=== PATIENT | female | born 1995 | race American Indian/Alaskan Native ===

== ENCOUNTER 2020-04-15 23:39 | Emergency (ER) | payer OTHER ==
[2020-04-16 00:38] VITALS: BP 106/75
--- NOTE | 2020-04-16 01:32 | XRay Report ---
LUMBAR SPINE HISTORY: Lower back pain COMPARISON: None. TECHNIQUE: 2 view(s) of the lumbar spine obtained. FINDINGS: Vertebrae: Normal alignment. No displaced fracture or significant abnormality. Disc Spaces:No significant abnormality. Facet Joints:No significant abnormality. Additional findings: None. IMPRESSION: 1. No significant abnormality of the lumbar spine. Signer Name: Latrice Ochoa MD Signed: 04/16/2020 1:27 AM Workstation Name: [id number]
[2020-04-16] MEDS ORDERED: KETOROLAC 30 MG/1 ML INJ IM ONE (01:43)
[2020-04-16] MEDS ORDERED: CYCLOBENZAPRINE 10 MG TAB PO ONE (01:44)
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
== END 2020-04-16 02:18 | disposition home or self-care (01) ==
LOC: ED 23:39
DX: S39.012A Strain of muscle, fascia and tendon of lower back, initial encounter (principal); Z79.899 Other long term (current) drug therapy; V49.59XA Passenger injured in collision with other motor vehicles in traffic accident, initial encounter; Y93.89 Activity, other specified; Y92.410 Unspecified street and highway as the place of occurrence of the external cause; Y99.8 Other external cause status
CPT/HCPCS: 72100; 96372; 99283; J1885

== ENCOUNTER 2020-04-21 11:39 | Emergency (ER) | payer OTHER ==
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
[2020-04-21 16:03] VITALS: BP 102/57
== END 2020-04-21 16:03 | disposition home or self-care (01) ==
LOC: ED 11:39
DX: R47.81 Slurred speech (principal); Z79.899 Other long term (current) drug therapy
CPT/HCPCS: 70450; 99283